=== PATIENT | female | born 1990 | race African-American/Black ===

== ENCOUNTER → 2017-01-17 | Outpatient (REF) | payer OTHER ==
[~2017-01-17] MED LIST: /ACETCOD3T OR; ABILI; ABILIFY; XANA0.5T OR; ZOLOFT
== END ==
LOC: M LAB REF 16:24 → EEVIPCON 16:24
PROVIDERS: ATTEND Surgery
DX: L02.91 Cutaneous abscess, unspecified (principal)

== ENCOUNTER 2018-10-25 12:16 | Emergency (ER) | payer MEDICAID, OTHER, SELFPAY ==
[~2018-10-25] VITALS: Ht 154.9 cm; Wt 54.5 kg
[~2018-10-25 12:16] MED LIST changes: -/ACETCOD3T OR; +ACET1TAB16 OR
[2018-10-25] MEDS ORDERED: NS 1,000 ML IV ONE ×3 (13:00→17:00)
[2018-10-25] MEDS ORDERED: ACETAMINOPHEN TAB 650MG DOSE (2X325MG) PO ONE (13:00)
[2018-10-25] MEDS ORDERED: CEFEPIME HCL 2 GM in D5W MINI-BAG PLUS 50 ML IV ONE (13:15)
[2018-10-25] MEDS ORDERED: VANCOMYCIN HCL 1,000 MG, VIAL MATE ADAPTER 1 EACH in D5W 250 ML IV ONE (13:15)
[2018-10-25] MEDS ORDERED: ONDANSETRON 4MG/2ML VIAL (J2405) As Ordered ONE (13:25)
[2018-10-25] MEDS ORDERED: ONDANSETRON 4MG/2ML VIAL (J2405) IV ONE ×2 (13:45→17:15)
[2018-10-25 13:50] LABS: HEMATOCRIT 30.6 % (36.0-47.0); HEMOGLOBIN 10.1 g/dl (12.0-15.5); MEAN CORPUSCULAR HEMOGLOBIN 28.3 pg (27.0-33.0); MEAN CORPUSCULAR VOLUME 85.7 fl (80.0-96.0); PLATELET COUNT, AUTOMATED 182 10^3/uL (150-450); RED BLOOD COUNT 3.57 10^6/uL (4.00-5.40)
[2018-10-25] MEDS ORDERED: IBUPROFEN 600 MG TAB As Ordered ONE (14:15)
[2018-10-25] MEDS ORDERED: IBUPROFEN 600 MG TAB PO ONE (14:15)
[2018-10-25 14:24] LABS: ALBUMIN 2.2 GM/DL (3.2-5.2); ALT/SGPT 44 U/L (12-78); BILIRUBIN,DIRECT 0.4 MG/DL (0.0-0.2); BILIRUBIN,TOTAL 0.8 MG/DL (0.2-1.0); BLOOD UREA NITROGEN 15 MG/DL (7-18); CALCIUM LEVEL 8.3 MG/DL (8.5-10.1); CARBON DIOXIDE LEVEL 24 MEQ/L (21-32); CHLORIDE LEVEL 99 MEQ/L (98-107); CK-MB VALUE MASS 2.5 NG/ML (<3.6); CPK CREATINE PHOSPHOKINASE 68 U/L (26-192); CREATININE FOR GFR 0.99 MG/DL (0.55-1.30); GLOMERULAR FILTRATION RATE > 60.0 (>60); GLUCOSE, FASTING 97 MG/DL (70-100); LIPASE 309 U/L (73-393); MB/CK RELATIVE INDEX 3.68 (< OR =4); POTASSIUM SERUM 3.5 MEQ/L (3.5-5.1); SODIUM LEVEL 134 MEQ/L (136-145); TOTAL PROTEIN 8.1 GM/DL (6.4-8.2); TROPONIN I 4.33 NG/ML (< 0.10)
[2018-10-25 14:30] LABS: HCG, SERUM QUALITATIVE NEGATIVE (NEGATIVE)
[2018-10-25 14:38] LABS: LYMPHOCYTES 4 % (16-44); MONOCYTES 2 % (0-5); NEUTROPHILS 93 % (28-66); PLATELET ESTIMATE NORMAL (NORMAL)
--- NOTE | 2018-10-25 15:29 | REP ---
REASON: Dyspnea and pyrexia. COMPARISON: 01/09/2007 The technique utilized in obtaining the radiograph has magnified the cardiac silhouette and accentuated the interstitial markings. The cardiac silhouette is magnified by technique. Mild cardiomegaly cannot be ruled out. There is an intracardiac septal occlusive device, which is unchanged from the prior exam. There is a new patchy opacity in the right lower lobe. The pleural angles are sharp. The osseous structures are stable and intact. IMPRESSION: Right lower lobe pneumonia versus asymmetric pulmonary edema. This should be correlated clinically with appropriate followup. Mild cardiomegaly is suspected as described above. There is a history of previous atrial septal defect with an unchanged appearing intracardiac atrial septal occlusive device. Electronically Signed by David Winters DO 10/25/2018 04:22 P
[2018-10-25] MEDS ORDERED: HEPARIN DRIP 25,000 UNITS in IV 1 EA IV SCH (18:00)
[2018-10-25] MEDS ORDERED: HEPARIN SOD (PORCINE) 5000 UNITS/ML VIAL IV ONE (18:00)
[2018-10-25 18:50] VITALS: BP 93/57
--- NOTE | 2018-10-26 05:53 | ECGEPIP ---
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
--- NOTE | 2018-10-26 07:11 | REP ---
REASON: Abdominal pain. PRIORS: None. Subsegmental atelectatic changes are seen in the lung bases. The lack of intravenous contrast and oral bowel preparatory contrast significantly decreases the sensitivity of the exam. The solid intra-abdominal organs are grossly within normal limits. The pancreas, adrenal glands, and kidneys are grossly within normal limits. There are multiple mildly dilated gas and fluid-filled small bowel loops in the abdomen. There is a small amount of fluid in each paracolic gutter, right greater than left. There is a small amount of free pelvic fluid. There is no evidence of free air. Limited evaluation of the abdominal aorta and para-aortic regions shows no gross abnormalities. In the left hemipelvis, there is a round, mixed density structure with peripheral-type calcifications. This measures approximately 2.7 cm. There is mild fatty infiltration of the mesoappendix, and the maximal diameter of the appendix is 9 mm. IMPRESSION: 1. The exam is extremely limited, as described above. 2. I cannot rule out acute appendicitis. The appendix is mildly dilated and there is a small amount of free fluid and fatty infiltration of the mesoappendix. There is a small amount of free pelvic fluid. If clinically relevant, obtain intravenous contrast and oral bowel preparatory contrast enhanced exam. 3. There is a rim calcified structure in the left adnexa of uncertain etiology. This too is difficult to evaluate without oral or intravenous contrast administration. It could represent ovarian pathology. Followup is recommended. 4. There is, what appears to be, a small bowel ileus. 5. Other findings as described above. Electronically Signed by David Winters DO 10/26/2018 09:14 A
== END 2018-10-25 18:52 | disposition short-term general hospital (02) ==
LOC: M ED 12:16
DX: I21.4 Non-ST elevation (NSTEMI) myocardial infarction (principal); I33.0 Acute and subacute infective endocarditis; F33.9 Major depressive disorder, recurrent, unspecified; F41.9 Anxiety disorder, unspecified; G43.909 Migraine, unspecified, not intractable, without status migrainosus; F11.10 Opioid abuse, uncomplicated; F17.210 Nicotine dependence, cigarettes, uncomplicated
CPT/HCPCS: 36415; 71046; 74176; 80048; 80076; 82550; 82553; 83605; 83690; 84703; 85025; 87040; 87077; 87186; 93005; 93041; 94760; 96361; 96365; 96367; 96375; 96376; 99285; J0692; J2405; J3370

== ENCOUNTER → 2018-12-08 | Outpatient (REF) | LOC: M LAB 12:48 | DX: Z02.79 Encounter for issue of other medical certificate (principal) ==